=== PATIENT | male | born 1985 | race Caucasian/White ===

== ENCOUNTER 2022-12-12 04:08 | Emergency (ER) | payer BC, OTHER ==
[~2022-12-12] VITALS: Ht 182 cm; Wt 113.0 kg
[2022-12-12 04:18] VITALS: BP 147/89
--- NOTE | 2022-12-12 04:27 | ED EENT ---
History of Present Illness General Chief Complaint: Eye Problems Stated Complaint: RIGHT EYE INJURY History of Present Illness Date Seen by Provider: Dec 12, 2022 Time Seen by Provider: 04:20 Initial Comments 37-year-old male is here with complaints of right eye irritation and pain after he had a foreign body fly into his eye earlier yesterday. Patient works in [employer]. Patient has been rubbing his eye since then, and has not been able to sleep through the night due to the eye irritation and pain. Denies discharge or crusting over the eyelashes. Allergies and Home Medications Allergies Coded Allergies: No Known Drug Allergies (Unverified , 12/12/22) Patient Home Medication List Home Medication List Reviewed: Yes Review of Systems Review of Systems Constitutional: no symptoms reported Eyes: Foreign Body Sensation, Pain Ears: No Symptoms Reported Nose: no symptoms reported Mouth: no symptoms reported Throat: no symptoms reported Respiratory: no symptoms reported Cardiovascular: no symptoms reported Gastrointestinal: no symptoms reported Musculoskeletal: no symptoms reported Skin: no symptoms reported Neurological: No Symptoms Reported Hematologic/Lymphatic: No Symptoms Reported Immunological/Allergic: no symptoms reported Past Cacvuwm-Nnljck-Pzetud Hx Patient Social History Smokeless Tobacco Frequency: Current Everyday User Immunizations Up To Date First/Initial COVID19 Vaccinat: none Second COVID19 Vaccination Rogers: none Visual Acuity : Vision Acuity Degree: 20/20 Physical Exam Vital Signs Vital Signs - First Documented 12/12/22 04:18 Temp 36.7 Pulse 102 Resp 20 B/P (MAP) 147/89 (108) Pulse Ox 100 O2 Delivery Room Air Height, Weight, BMI Height: '" Weight: lbs. oz. kg; BMI Method: General Appearance: WD/WN, mild distress Eyes: right eye PERRL, right eye EOMI, right eye corneal abrasion (Was seen by Moore lamp, seen as a rainbow shaped abrasion along the superior part of the cornea. No foreign body seen) Neck: full range of motion Neurologic/Psychiatric: alert, oriented x 3 Skin: normal color Progress/Results/Core Measures Results/Orders My Orders Orders - JHONATHAN CARRENO MD Tetracaine 0.5% Ophth Maegan Sdv (Tetracai (12/12/22 04:30) Fluorescein Strips ([id number]-[id number]) (12/12/22 04:30) Vital Signs/I&O 12/12/22 04:18 Temp 36.7 Pulse 102 Resp 20 B/P (MAP) 147/89 (108) Pulse Ox 100 O2 Delivery Room Air Progress Progress Note : Progress Note 1. RIGHT CORNEAL ABRASION: - Seen by Moore Lamp and fluorescein strip after tetracaine, and irrigation of eye with sterile water -Erythromycin ophthalmic ointment stat in the ER -Ibuprofen 600 mg given in the ER. - Ophthalmic erythromycin ointment to be applied every 4 - 6 hours on the right eye -Ketorolac ophthalmic eyedrops to be applied every 8 hours as needed for pain -Follow-up with ophthalmology NASREEN -Advised not to rub the eye Departure Impression Primary Impression: Corneal abrasion, right Qualified Codes: S05.01XA - Injury of conjunctiva and corneal abrasion without foreign body, right eye, initial encounter Disposition: HOME, SELF-CARE Condition: Improved Departure-Patient Inst. Referrals: PIERCE LLAMAS MD (PCP/Family) Primary Care Physician Patient Instructions: Corneal Abrasion (DC), Corneal Abrasion Add. Discharge Instructions: - Ophthalmic erythromycin ointment to be applied every 4 - 6 hours on the right eye -Ketorolac ophthalmic eyedrops to be applied every 8 hours as needed for pain -Follow-up with ophthalmology NASREEN -Advised not to rub the eye All discharge instructions reviewed with patient and/or family. Voiced understanding. Scripts Ketorolac Tromethamine (Acular) 0.5 % Drops 5 ML OP Q8H for 5 Days, #1 DROPS Prov: JHONATHAN CARRENO MD 12/12/22 Erythromycin Base (Erythromycin Opthalmic Ointment) 5 Mg/Gram (0.5 %) Oint...g. 0 OP Q4H for 10 Days, EA 1 inch Prov: JHONATHAN CARRENO MD 12/12/22 JHONATHAN CARRENO MD Dec 12, 2022 04:27
[2022-12-12] MEDS ORDERED: FLUORESCEIN (FLUOR-I-STRIPS) 1 MG STRP ONE (04:30)
[2022-12-12] MEDS ORDERED: TETRACAINE 0.5% OPHTH SOLN 4 ML BTL (SINGLE DOSE ONLY) OP ONE (04:30)
[2022-12-12] MEDS ORDERED: FLUORESCEIN (FLUOR-I-STRIPS) 1 MG STRP OP ONE (04:30)
[2022-12-12] MEDS ORDERED: ERYTHROMYCIN OPHTH OINT 1 GM (SINGLE USE) TUBE OP STA (04:55)
[2022-12-12] MEDS ORDERED: KETO5DRO OP (04:59)
[2022-12-12] MEDS ORDERED: ERYT1OIN6 OP (04:59)
[2022-12-12] MEDS ORDERED: IBUPROFEN 600 MG (MOTRIN) TAB PO ONE (05:00)
== END 2022-12-12 05:05 | disposition home or self-care (01) ==
LOC: ER FS 04:13
DX: S05.01XA Injury of conjunctiva and corneal abrasion without foreign body, right eye, initial encounter (principal); F17.200 Nicotine dependence, unspecified, uncomplicated; Z28.310 Unvaccinated for COVID-19; X58.XXXA Exposure to other specified factors, initial encounter; Y92.69 Other specified industrial and construction area as the place of occurrence of the external cause; Y99.0 Civilian activity done for income or pay
CPT/HCPCS: 99283

== ENCOUNTER → 2023-08-02 | Outpatient (CLI) | payer BC ==
[~2023-08-02] MED LIST: ERYT1OIN6 OP; KETO5DRO OP
--- NOTE | 2023-08-02 14:56 | Diagnostic Imaging Report ---
PROCEDURE: MRI lumbar spine. TECHNIQUE: Multiplanar, multisequence MRI of the lumbar spine was performed without contrast. INDICATION: Low back injury and pain after lifting 2 months ago. COMPARISON: None. FINDINGS: There are 5 lumbar-type vertebral bodies for the purposes of this report. Normal alignment. Vertebral body heights preserved. Normal bone marrow signal. No abnormal signal in the conus which terminates at L2. Normal morphology of the cauda equina. The visualized pelvis and paravertebral soft tissues are unremarkable. L1-L2: No spinal canal or lateral recess narrowing. No neural foraminal narrowing. L2-L3: No spinal canal, lateral recess or neural foraminal narrowing. L3-L4: Facet arthropathy results in mild to moderate bilateral neural foraminal narrowing. No spinal canal or lateral recess narrowing. L4-L5: No spinal canal or lateral recess narrowing. Facet arthropathy results in moderate to severe right and mild left neural foraminal narrowing. L5-S1: Small left paracentral disc protrusion. Mild bilateral lateral recess narrowing. No spinal canal narrowing. No neural foraminal narrowing. IMPRESSION: 1. Small left paracentral disc protrusion results in mild bilateral lateral recess narrowing at L5-S1. 2. Scattered high-grade neural foraminal narrowing due to spondylotic change detailed above. 3. No spinal canal stenosis. 4. No acute osseous findings. Dictated by: Dictated on workstation # [id number]
== END ==
LOC: RAD 10:05
PROVIDERS: ATTEND Family Medicine
DX: M51.27 Other intervertebral disc displacement, lumbosacral region (principal); M48.07 Spinal stenosis, lumbosacral region; M47.816 Spondylosis without myelopathy or radiculopathy, lumbar region; M48.061 Spinal stenosis, lumbar region without neurogenic claudication
CPT/HCPCS: 72148